=== PATIENT | female | born 1985 | race Caucasian/White ===

== ENCOUNTER 2024-08-07 09:13 | Emergency (ER) | payer MEDICAID, SELFPAY ==
[2024-08-07 09:13] VITALS: BMI 27.4
[2024-08-07 09:24] VITALS: BP 108/76; PULSE 78; RESP 18; TEMP 36.6; O2SAT 98
--- NOTE | 2024-08-07 09:27 | EDRME_ITS ---
Rapid Medical Screening Exam [facility] Arrival date/time: 08/07/24 09:13 38-year-old female with no known medical history presents to the emergency room with a chief complaint of tenderness and pain to her left thigh. Patient states yesterday afternoon a pipe hit her in the eye. Today she is having blurry vision, irritation and pain. I have greeted and performed a focused initial assessment of this patient. A comprehensive ED assessment and evaluation of the patient, analysis of all test results, and completion of the medical decision making process will be conducted by additional ED providers. Chief Complaint: Eye Problems Vital signs: Vital Signs Temperature 97.9 F 08/07/24 09:24 Pulse Rate 78 08/07/24 09:24 Respiratory Rate 18 08/07/24 09:24 Blood Pressure 108/76 08/07/24 09:24 Pulse Oximetry (%) 98 08/07/24 09:24 Oxygen Delivery Method Room Air 08/07/24 09:24 Vital signs reviewed by provider: Yes
--- NOTE | 2024-08-07 13:06 | EDNOTE_ITS ---
ED Eye Problem RME/HPI General Chief complaint: Eye Problems Stated complaint: HIT IN LEFT EYE YESTERDAY, THINKS SOMETHING IN EYE Source: patient Arrival date/time: 08/07/24 09:13 38-year-old female with no known medical history presents to the emergency room with a chief complaint of tenderness and pain to her left eye. Patient states yesterday afternoon a pipe hit her in the eye. Today she is having blurry vision, irritation and pain. Mode of arrival: ambulatory Limitations: no limitations RME / HPI RME / HPI Narrative: 08/07/24 09:13 38-year-old female with no known medical history presents to the emergency room with a chief complaint of tenderness and pain to her left thigh. Patient states yesterday afternoon a pipe hit her in the eye. Today she is having blurry vision, irritation and pain. I have greeted and performed a focused initial assessment of this patient. A comprehensive ED assessment and evaluation of the patient, analysis of all test results, and completion of the medical decision making process will be conducted by additional ED providers. Related Data Previous Rx's ?Medication ?Instructions ?Recorded amoxicillin 500 mg capsule 500 mg PO Q8H #30 caps 08/21 ciprofloxacin HCl 0.3 % eye drops See Rx Instructions ophthalmic 08/07/24 (eye) .COMPLEX #5 mL Allergies Allergy/AdvReac Type Severity Reaction Status Date / Time adhesive tape Allergy Severe Swelling Verified 08/07/24 09:17 of Lip/Tongue/Throat latex Allergy Severe Swelling Verified 08/07/24 09:17 of Lip/Tongue/Throat Review of Systems Review of Systems Systems Reviewed: All systems reviewed, normal except as documented Constitutional Constitutional: Reports system reviewed and no additional complaints, except as documented, Denies fatigue, Denies fever(s), Denies headache(s) and Denies weakness Eyes Eyes: Reports system reviewed and no additional complaints, except as documented, Denies blind spots, Reports blurry vision, Denies change in vision, Denies decreased night vision, Denies diplopia, Denies eye discharge, Denies dry eyes, Denies exophthalmos, Denies floaters, Reports irritation, Denies itchy eyes, Denies loss of peripheral vision, Denies loss of vision, Denies other visual disturbances, Reports eye pain, Denies photophobia, Denies requires corrective lenses, Denies seeing flashes, Denies spots in vision and Denies tunnel vision ENT Ears, Nose, Mouth, and Throat: Reports system reviewed and no additional complaints, except as documented, Denies otalgia, Denies headache(s), Denies nasal congestion, Denies throat swelling and Denies vertigo Cardiovascular Cardiovascular: Reports system reviewed and no additional complaints, except as documented, Denies chest pain, Denies dyspnea and Denies dyspnea on exertion Respiratory Respiratory: Reports system reviewed and no additional complaints, except as documented, Denies chest congestion, Denies cough, Denies dyspnea, Denies d yspnea on exertion and Denies wheezing Gastrointestinal Gastrointestinal: Reports system reviewed and no additional complaints, except as documented, Denies abdominal pain, Denies cramping, Denies nausea and Denies vomiting Genitourinary Genitourinary: Reports system reviewed and no additional complaints, except as documented Musculoskeletal Musculoskeletal: Reports system reviewed and no additional complaints, except as documented and Denies back pain Integumentary/Breasts Skin/Breast: Reports system reviewed and no additional complaints, except as documented and Denies wounds Neurologic Neurologic: Reports system reviewed and no additional complaints, except as documented, Denies confusion, Denies headache(s), Denies lack of coordination, Denies loss of vision, Denies vertigo and Denies weakness Psychiatric Psychiatric: Reports system reviewed and no additional complaints, except as documented, Denies anxiety, Denies confusion, Denies depression, Denies paranoia, Denies suicidal ideation and Denies tactile hallucinations Endocrine Endocrine: Reports system reviewed and no additional complaints, except as documented and Denies fatigue Hematologic/Lymphatic Hematologic/Lymphatic: Reports system reviewed and no additional complaints, except as documented and Denies lymphadenopathy Allergic/Immunologic Allergic/Immunologic: Reports system reviewed and no additional complaints, except as documented, Denies itchy eyes, Denies throat swelling, Denies urticaria and Denies wheezing ED Exam General Limitations: Present no limitations General appearance: Present alert and in no apparent distress Head Head exam: Present atraumatic Eye Eye exam: Present normal appearance, PERRL and EOMI Expanded Eye Exam Eyelids: left: laceration Pupils: Bilateral: regular, round and reactive Sclera/Conjunctival: bilateral: normal inspection ENT ENT exam: Present normal exam, normal oropharynx and mucous membranes moist Neck Neck exam: Present normal inspection, full ROM and trachea midline Chest Chest inspection: Present normal inspection and symmetric chest wall rise Respiratory Respiratory exam: Present normal lung sounds bilaterally Cardiovascular Cardiovascular exam: Present regular rate, normal rhythm and normal heart sounds Abdominal Exam Abdominal exam: Present soft and normal bowel sounds Extremities Exam Extremities exam: Present normal inspection and full ROM Back Exam Back exam: Present normal inspection and full ROM Neurological Exam Neurological exam: Present alert, oriented X3 and CN II-XII intact Psychiatric Psychiatric exam: Present normal affect and normal mood Skin Skin exam: Present warm, dry, intact and normal color Course Quality Measures none Orders Category Date Time Status ED Eye Irrigation ONCE Care 08/07/24 09:26 Completed ED Eye Irrigation ONCE Care 08/07/24 13:06 Completed Visual Acuity X1 Care 08/07/24 09:26 Completed Alfaro Lamp to Bedside X1 Care 08/07/24 09:26 Completed Fluorescein Sodium [[id number]] Med 08/07/24 09:26 Discontinued 1 mg LEFT EYE X1 ONE TETRACAINE Op Amy 0.5% [Pontocaine Op Amy 0.5%] Med 08/07/24 09:26 Discontinued 1 drop LEFT EYE X1 ONE Vital Signs Vital signs: Vital Signs Temperature 97.9 F 08/07/24 09:24 Pulse Rate 78 08/07/24 09:24 Respiratory Rate 18 08/07/24 09:24 Blood Pressure 108/76 08/07/24 09:24 Pulse Oximetry (%) 98 08/07/24 09:24 Oxygen Delivery Method Room Air 08/07/24 09:24 O2 saturation 98% within normal limits Eye MDM Narrative MDM Narrative:: 38-year-old female with no known medical history presents to the emergency room with a chief complaint of tenderness and pain to her left eye. Patient states yesterday afternoon a pipe hit her in the eye. Today she is having blurry vision, irritation and pain. Patient is hemodynamically stable and in no apparent distress. Physical examination shows tenderness and pain to the patient's left eye during evaluation you could see a small laceration to the left eyelid. The eye was irrigated. At this time there is no fluorescein strips in her hospital to fully see if there is an abrasion or ulceration. I explained this to the patient and educated her that she will need to follow-up with her social media specialist as soon as possible for further management. I sent over antibiotics to her pharmacy. Patient is stable for discharge and agreed with my plan and states that she will follow-up with her social media specialist Patient was discharged and educated to follow-up with primary care provider in the next 24 to 48 hours and return to the emergency room for any evidence of worsening signs or symptoms Patient data External records reviewed:: [facility] previous records Clinical information provided by:: patient Social determinants that could affect healthcare access:: none Patient has the following chronic illnesses:: No chronic illness How is presenting disease/condition affected by chronic disease/condition?: no chronic disease Evaluation data The following diagnostics were reviewed and interpreted by me:: lab results and radiology exam(s) Lab and/or radiology exams considered but not ordered:: Labs and radiology exams considered and ordered Interpretation Summary: N/A Medications / Prescriptions Medications or Prescriptions considered but not ordered:: Medication given Medication administrations:: Medication Administration History Discontinued Medications Fluorescein Sodium (Fluorescein Sod 1 Mg Strp) 1 mg LEFT EYE X1 ONE Stop: 08/07/24 09:27 Last Admin: 08/07/24 10:31 Dose: Not Given Documented By: C Non-Admin Reason: Medication Not Available Tetracaine HCl (Tetracaine Pf Op Amy 0.5% 4 Ml Drpette) 1 drop LEFT EYE X1 ONE Stop: 08/07/24 09:27 Last Admin: 08/07/24 13:16 Dose: Not Given Documented By: Non-Admin Reason: Medication Not Available Medication given Consultations Consultation(s) initiated? (list below): No Diagnosis Eye Problem Differential Diagnosis: corneal abrasion, conjunctivitis, acute iritis, corneal ulcer and other (Corneal injury) Most likely diagnosis given after review of the tests above:: Corneal injury Admission Indicated Admission indicated?: not indicated Admission Request Was there a request for admission?: No Disposition Plan Disposition Plan: Discharge Discharge Attestation Discharge Attestation: The patient and all family members were given an opportunity to ask questions and understood the discharge instructions. Discharge instructions specifically effects, indications for sooner follow up or return to the emergency department, and the expected course of current diagnosis. Patient condition: Stable Discharge Plan Plan Patient Disposition: HOME (Self Care) Discharge Disposition comment: Stable Prescriptions/Referrals Prescriptions/Med Rec: New ciprofloxacin HCl 0.3 % drops See Rx Instructions .ROUTE .COMPLEX Qty: 5 0RF Rx Instructions: put 1-2 drps in affected eye(s) every 2hr up to 8 times/day x2days; then 4 times/day x5days No Action amoxicillin 500 mg capsule 500 mg PO Q8H Qty: 30 0RF Referrals: Nguyễn Fitch MD [Primary Care Provider] - In 1 week Problem List Clinical Impression: Corneal abrasion Patient/Caregiver Discharge Instructions Education Materials: Corneal Injury Additional Instructions: Follow-up with your primary care provider in the next 24 to 48 hours You will need to see an social media specialist. Today the hospital was out of fluorescein strips. Without fluorescein strips we are unable to differentiate between an ulceration or an abrasion in your eye. Your eye was irrigated and antibiotic drops were sent to your pharmacy. Please go and see an social media specialist as soon as possible For any evidence of worsening signs or symptoms return to the emergency room immediately Print Language: Mauritian Stand Alone Forms: Kerry Award Info., Patient Portal Info Letter PA/ADAMS Supervising Physician MALIA/ADAMS Supervising Physician: Dr. Laws
[2024-08-07 13:19] VITALS: BP 126/80; PULSE 80; RESP 18; TEMP 36.8; O2SAT 98
== END 2024-08-07 13:20 | disposition home or self-care (01) ==
PROVIDERS: Emergency Provider Family Medicine; PCP Family Medicine
DX: S05.02XA Injury of conjunctiva and corneal abrasion without foreign body, left eye, initial encounter (principal); W22.8XXA Striking against or struck by other objects, initial encounter
CPT/HCPCS: 99283